=== PATIENT | male | born 1950 ===

== ENCOUNTER 2018-06-18 14:11 | Day surgery (SDC) | payer MEDICARE, OTHER ==
[~2018-06-18] VITALS: Ht 185.4 cm; Wt 91.0 kg
[2018-06-18 15:15] VITALS: BP 159/76; PULSE 96; TEMP 99
[2018-06-18] MEDS ORDERED: FLOMAX 0.40.4 MG/CAP PO (15:35)
[2018-06-18] MEDS ORDERED: NORCO 325 MG-51 TAB PO (15:36)
[2018-06-18] MEDS ORDERED: LEADER FIBER1 POW PO (15:37)
[2018-06-18 18:45] VITALS: BP 141/71; PULSE 83; TEMP 98.6
[2018-06-18 19:00] VITALS: BP 136/71; PULSE 83
[2018-06-18 19:15] VITALS: BP 117/66; PULSE 87
[2018-06-18 19:27] VITALS: TEMP 98.6
[2018-06-18 19:30] VITALS: BP 124/70; PULSE 88
--- NOTE | 2018-06-18 19:30 | NUR ---
Pt. sitting up in bed with at bedside. Pt. is A&OX3, assessment complete. INT to lt. ac patent. Pt. has urniated, ambulated and is tolerating PO. Pt. denies pain. Will prepare to discharge pt.
--- NOTE | 2018-06-18 19:50 | NUR ---
Pt. given discharge paperwork. Reviewed discharge instructions, and education. Gave pt. scripts and follow up appointment information. Pt. educated on continuing home meds. Pt. given health summary. Pt.'s questions answered. INT to lt. ac discontinued. Pt. dressed and escorted out by this nurse.
== END 2018-06-18 20:00 | disposition home or self-care (01) ==
LOC: SDCO 14:11 → SURG 18:30 → SDCO 20:00
DX: N20.1 Calculus of ureter (principal); Z85.828 Personal history of other malignant neoplasm of skin; Z79.899 Other long term (current) drug therapy; Z87.442 Personal history of urinary calculi; R97.20 Elevated prostate specific antigen [PSA]; N43.40 Spermatocele of epididymis, unspecified; N52.9 Male erectile dysfunction, unspecified
CPT/HCPCS: OP; C1769; C2617; J0690; J2704; J3010; J7120; Q9967